=== PATIENT | female | born 2005 | race Two or more races ===

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

== ENCOUNTER → 2025-01-20 | Outpatient (CLI) | payer MEDICAID, SELFPAY ==
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
--- NOTE | 2025-01-20 09:35 | XR_ITS ---
Examination: Left femur 2 views Technique one AP lateral left femur 2 views Date and time: January 20, 2025 10:44 AM, comparison October 14, 2024 INDICATIONS: Status post operative reduction internal fixation left femur fracture 2 years ago FINDINGS: Healed fracture left femoral shaft with satisfactory alignment Intramedullary tam satisfactory position Left hip is intact IMPRESSION: Healed fracture left femoral shaft with satisfactory position
--- NOTE | 2025-01-20 09:35 | XR_ITS ---
Examination:Right hip AP, lateral, AP pelvis 3 views Technique: Hip AP lateral, AP pelvis, 3 views Exam date and time:January 20, 2025 1030 hours INDICATIONS: Status post left hip surgery 2 years ago with pain FINDINGS: Normal bone density. No hip fracture or dislocation No significant arthritic change. Partial visualization intramedullary femoral tam with healed fracture proximal femur IMPRESSION: Healed fracture proximal femur with satisfactory alignment.
== END | disposition home or self-care (01) ==
PROVIDERS: Referring Provider Orthopaedic Surgery; Visit Provider Orthopaedic Surgery
DX: M79.662 Pain in left lower leg (principal); T84.84XA Pain due to internal orthopedic prosthetic devices, implants and grafts, initial encounter; Z87.81 Personal history of (healed) traumatic fracture; S89.92XS Unspecified injury of left lower leg, sequela; V89.2XXS Person injured in unspecified motor-vehicle accident, traffic, sequela
CPT/HCPCS: 73502; 73552; 73590